=== PATIENT | female | born 1975 | race Caucasian/White ===

== ENCOUNTER 2020-07-25 12:25 | Outpatient (REF) | payer OTHER, SELFPAY ==
--- NOTE | 2020-07-25 12:32 | MM_ITS ---
EXAMINATION: MM DIAGNOSTIC DIGITAL BREAST TOMOSYNTHESIS, BILATERAL CLINICAL INFORMATION: Probable benign calcifications mid outer right breast initially noted at baseline exam. Due for yearly. The lifetime risk of breast cancer based on the Tyrer-Cuzick Model is 7%. COMPARISON: Mammography: 07/17/2019, 11/28/2018, 05/27/2018, 04/22/2018 (BI-RADS 0, baseline). TECHNIQUE: Digital breast tomosynthesis is performed in both the craniocaudal and mediolateral oblique views along with computer-aided detection (CAD). Synthesized 2D images are generated from the tomosynthesis. FINDINGS: The breasts are heterogeneously dense, which may obscure small masses (ACR BI-RADS breast composition Category c). There is no developing density or interval mass or architectural abnormality. There are scattered punctate round calcifications in each breast. The calcifications for follow-up mid 9:30 o'clock right breast are similar to prior diagnostic studies and now considered to be benign. Results are provided to the patient at time of visit by the technologist. MM/MM tomosynthesis diagnostic BI IMPRESSION: 1. No mammographic evidence of malignancy. 2. Right breast calcifications stable from prior diagnostic studies, now considered benign. ASSESSMENT: BI-RADS 2: Benign RECOMMENDATION: Routine annual mammography screening. This patient's information was entered into a reminder system with a target due date for their next mammogram.
== END 2020-07-25 12:26 | disposition home or self-care (01) ==
LOC: HO.MAMMO 12:25
PROVIDERS: PCP Nurse Practitioner Gerontology; Visit Provider Advanced Practice Midwife
DX: R92.1 Mammographic calcification found on diagnostic imaging of breast (principal)
CPT/HCPCS: 77062; 77066

== ENCOUNTER 2020-08-05 06:55 | Outpatient (REF) | payer OTHER, SELFPAY | END 2020-08-05 06:56 | disposition home or self-care (01) | LOC: HO.LAB 06:55 | PROVIDERS: Visit Provider Internal Medicine | DX: Z20.828 Contact with and (suspected) exposure to other viral communicable diseases (principal) | CPT/HCPCS: C9803; U0003 ==

== ENCOUNTER 2021-07-18 13:27 | Outpatient (REF) | payer OTHER, SELFPAY ==
--- NOTE | ~2021-07-18 | MM_ITS ---
EXAMINATION: MM SCREENING DIGITAL BREAST TOMOSYNTHESIS, BILATERAL CLINICAL INFORMATION: Screening. Asymptomatic. The lifetime risk of breast cancer based on the Tyrer-Cuzick Model is 6%. COMPARISON: Mammography: 07/25/2020, 07/17/2019, 11/28/2018, 05/27/2018, 04/22/2018 TECHNIQUE: Digital breast tomosynthesis is performed in both the craniocaudal and mediolateral oblique views along with computer-aided detection (CAD). Synthesized 2D images are generated from the tomosynthesis. FINDINGS: The breasts are heterogeneously dense, which may obscure small masses (ACR BI-RADS breast composition Category c). There are no significant masses, abnormal calcifications, or other abnormalities. Summation artifact posterior central left breast on synthesized CC view shows no correlate on tomography. There is no developing density in either breast. Scattered punctate calcifications again seen regional anterior to mid medial left breast and stable calcifications mid upper outer right breast. The axilla and skin contours are unremarkable. MM/MM tomosynthesis screening BI IMPRESSION: No mammographic evidence of malignancy. ASSESSMENT: BI-RADS 2: Benign RECOMMENDATION: Routine annual mammography screening. This patient's information was entered into a reminder system with a target due date for their next mammogram.
== END 2021-07-18 13:28 | disposition home or self-care (01) ==
LOC: HO.MAMMO 13:27
PROVIDERS: Visit Provider Advanced Practice Midwife
DX: Z12.31 Encounter for screening mammogram for malignant neoplasm of breast (principal)
CPT/HCPCS: 77063; 77067

== ENCOUNTER 2021-07-23 08:26 | Outpatient (REF) | payer OTHER, SELFPAY ==
[2021-07-26 02:47] LABS: HPV mRNA E6/E7 rflx Not Detected (Not Detected)
== END 2021-07-23 08:27 | disposition home or self-care (01) ==
LOC: HO.LAB 08:26
PROVIDERS: PCP Internal Medicine; Visit Provider Obstetrics & Gynecology
DX: Z01.411 Encounter for gynecological examination (general) (routine) with abnormal findings (principal); Z11.51 Encounter for screening for human papillomavirus (HPV); N85.2 Hypertrophy of uterus
CPT/HCPCS: 87624; 88142

== ENCOUNTER 2021-07-23 13:26 | Outpatient (REF) | payer OTHER, SELFPAY ==
--- NOTE | ~2021-07-23 | US_ITS ---
EXAMINATION: US PELVIS COMPLETE CLINICAL INFORMATION: Uterine hypertrophy. COMPARISON: None TECHNIQUE: Ultrasound of the pelvis is performed using both transabdominal and transvaginal transducers along with Doppler. Transvaginal imaging is performed due to inadequate visualization transabdominally. FINDINGS: Uterus: The uterus is anteverted and anteflexed measuring 11.0 x 6.0 x 6.2 cm. There is a right fundal fibroid measuring 5.1 x 4.9 x 5.9 cm. The double wall endometrial thickness is 11 mm. Other than the fibroid, the uterus is smooth in contour and has normal myometrial echogenicity. A complex nabothian cyst measuring 1.0 x 0.6 x 0.8 cm is seen in the cervix. Adnexa: Both ovaries are visualized. There is normal color-flow to the adnexa. There is no ovarian torsion. There is no pelvic ascites or fluid collection. Right ovary measures 4.1 x 1.9 x 2.0 cm for a volume of 8.2 mL and contains a 1.4 x 1.3 x 1.0 cm probable corpus luteum cyst. Left ovary measures 2.8 x 1.2 x 2.0 cm for a volume of 3.5 mL and appears unremarkable. US/US pelvic complete IMPRESSION: 5.9 cm right fundal uterine fibroid.
== END 2021-07-23 13:27 | disposition home or self-care (01) ==
LOC: HO.US 13:26
PROVIDERS: PCP Internal Medicine; Visit Provider Obstetrics & Gynecology
DX: N85.2 Hypertrophy of uterus (principal)
CPT/HCPCS: 76856

== ENCOUNTER → 2021-10-28 12:07 | Outpatient (BNVA) | payer OTHER, SELFPAY | PROVIDERS: PCP Internal Medicine; Visit Provider Obstetrics & Gynecology ==

== ENCOUNTER 2022-03-16 10:54 | Outpatient (REF) | payer OTHER, SELFPAY ==
--- NOTE | ~2022-03-16 | US_ITS ---
EXAMINATION: US PELVIS CLINICAL INFORMATION: Benign neoplasm of connective and other soft tissue. COMPARISON: Previous ultrasound 07/23/2021. TECHNIQUE: Ultrasound of the pelvis is performed using both transabdominal and transvaginal transducers along with Doppler. Transvaginal imaging is performed due to inadequate visualization transabdominally. FINDINGS: UTERUS: The uterus is anteverted, anteflexed and measures 11.2 cm in length, 6.2 cm in AP and 6.0 cm in transverse dimension. The double wall endometrial thickness is 0.6 cm. The uterus is smooth in contour and has normal myometrial echogenicity. There are 2 hypoechoic lesions. The larger lesion in the right fundus measures 6.1 x 5.7 x 6.0 cm. Previously it measured 5.1 x 4.9 x 5.9 cm. A smaller hyperechoic lesion in the right body of the uterus measures 0.8 x 0.5 x 0.7 cm and is new. There is a complex nabothian cyst measuring 0.8 x 0.5 x 0.8 cm. ADNEXA: Both ovaries are visualized. There is normal color flow to the adnexa. There is no ovarian torsion. There is no pelvic ascites or fluid collection. RIGHT OVARY: Measures 2.8 x 1.7 x 2.1 cm and volume 5.2 mL. It is visualized transabdominally. No focal lesion seen. Previously it measured 4.1 x 1.9 x 2.0 cm. LEFT OVARY: Measures 2.4 x 1.2 x 1.9 cm and volume 2.9 mL. No focal lesion seen. Previously left ovary measured 2.8 x 1.2 x 2.0 cm. US/US pelvic and transvaginal IMPRESSION: Two uterine fibroids. The smaller one is new. Complex nabothian cysts. The ovaries are unremarkable.
== END 2022-03-16 10:55 | disposition home or self-care (01) ==
LOC: HO.US 10:54
PROVIDERS: Visit Provider Obstetrics & Gynecology
DX: D21.9 Benign neoplasm of connective and other soft tissue, unspecified (principal)
CPT/HCPCS: 76830; 76856

== ENCOUNTER → 2022-03-30 10:25 | Outpatient (BNVA) | payer OTHER, SELFPAY | PROVIDERS: PCP Internal Medicine; Visit Provider Obstetrics & Gynecology | DX: D25.9 Leiomyoma of uterus, unspecified (principal) | CPT/HCPCS: 99212 ==

== ENCOUNTER 2022-09-08 11:39 | Outpatient (REF) | payer OTHER, SELFPAY ==
[2022-09-08 12:11] LABS: COVID-19 Test Negative (Negative); IDNOW Serial# 55D5AD1C
== END 2022-09-08 11:40 | disposition home or self-care (01) ==
LOC: HO.LAB 11:39
PROVIDERS: Visit Provider Internal Medicine
DX: Z20.822 Contact with and (suspected) exposure to COVID-19 (principal)
CPT/HCPCS: 87635; C9803

== ENCOUNTER 2022-09-30 09:12 | Outpatient (REF) | payer OTHER, SELFPAY ==
[2022-10-02 17:58] LABS: HPV mRNA E6/E7 rflx Not Detected (Not Detected)
== END 2022-09-30 09:13 | disposition home or self-care (01) ==
LOC: HO.LNP 09:12
PROVIDERS: PCP Internal Medicine; Visit Provider Obstetrics & Gynecology
DX: Z01.419 Encounter for gynecological examination (general) (routine) without abnormal findings (principal); Z11.51 Encounter for screening for human papillomavirus (HPV)
CPT/HCPCS: 87624; 88142

== ENCOUNTER 2022-09-30 10:10 | Outpatient (REF) | payer OTHER, SELFPAY ==
[2022-09-30 11:24] LABS: Syphilis Screen Nonreactive (Nonreactive)
[2022-09-30 11:25] LABS: HIV AB/AG Nonreactive (Nonreactive); HIV Num 1 0.06 S/CO (0.00-0.99); Hepatitis B Surface Antigen Negative (Negative); ~Hepatitis C Antibody Nonreactive (Nonreactive)
[2022-09-30 13:39] LABS: CT PCR NOT DETECTED (Not Detect.); NG PCR NOT DETECTED (Not Detect.)
[2022-10-01 09:00] LABS: BV Int Neg Control Negative (Negative); BV Int Pos Control Positive (Positive)
== END 2022-09-30 10:11 | disposition home or self-care (01) ==
LOC: HO.LAB 10:10
PROVIDERS: PCP Internal Medicine; Visit Provider Obstetrics & Gynecology
DX: Z01.419 Encounter for gynecological examination (general) (routine) without abnormal findings (principal); Z11.3 Encounter for screening for infections with a predominantly sexual mode of transmission; Z11.4 Encounter for screening for human immunodeficiency virus [HIV]
CPT/HCPCS: 0353U; 86780; 86803; 87340; 87389; 87480; 87510; 87660

== ENCOUNTER 2022-10-16 11:03 | Outpatient (REF) | payer OTHER, SELFPAY ==
--- NOTE | ~2022-10-16 | MM_ITS ---
EXAMINATION: MM SCREENING DIGITAL BREAST TOMOSYNTHESIS, BILATERAL CLINICAL INFORMATION: Screening. Asymptomatic. The lifetime risk of breast cancer based on the Tyrer-Cuzick Model is 7%. COMPARISON: Mammography: 07/18/2021, 07/25/2020, 07/17/2019, 04/22/2018 TECHNIQUE: Digital breast tomosynthesis is performed in both the craniocaudal and mediolateral oblique views along with computer-aided detection (CAD). Synthesized 2D images are generated from the tomosynthesis. FINDINGS: The breasts are heterogeneously dense, which may obscure small masses (ACR BI-RADS breast composition Category c). Left CC view has subtle small asymmetric density mid outer breast, 4 cm from nipple. Finding is likely related to summation artifact or incompletely compressed glandular tissue. Patient will be recalled for additional imaging. The remainder of the breasts show no significant changes from prior studies. No developing density or architectural abnormality. Again, there are scattered bilateral punctate calcifications similar to prior study. The skin contours are smooth. MM/MM tomosynthesis screening BI IMPRESSION: Left: -Subtle asymmetric density mid outer breast on CC view, likely summation artifact or incompletely compressed glandular tissue. Right: -No mammographic evidence of malignancy. ASSESSMENT: BI-RADS 0: Incomplete - Need Additional Imaging Evaluation RECOMMENDATION: 1. Additional views of the left breast (spot CC). 2. Targeted ultrasound if warranted after review of the additional views. 3. Radiology department staff will contact the patient for additional imaging. This patient's information was entered into a reminder system with a target due date for their next mammogram.
== END 2022-10-16 11:04 | disposition home or self-care (01) ==
LOC: HO.MAMMO 11:03
PROVIDERS: Visit Provider Obstetrics & Gynecology
DX: Z12.31 Encounter for screening mammogram for malignant neoplasm of breast (principal)
CPT/HCPCS: 77063; 77067

== ENCOUNTER 2022-10-28 09:18 | Outpatient (REF) | payer OTHER, SELFPAY ==
--- NOTE | ~2022-10-28 | MM_ITS ---
EXAMINATION: MM DIAGNOSTIC DIGITAL BREAST TOMOSYNTHESIS, LEFT CLINICAL INFORMATION: Left breast density laterally COMPARISON: Mammography: October 16, 2022 and studies dating back to April 22, 2018 TECHNIQUE: Digital breast tomosynthesis is performed. 2D images are generated from the tomosynthesis. The following views are obtained: Spot compression left breast craniocaudal view. FINDINGS: The breasts are heterogeneously dense, which may obscure small masses (ACR BI-RADS breast composition Category c). Additional views show no significant mass, architectural abnormality, or abnormal calcifications. Results are provided to the patient at time of visit by the technologist. MM/MM tomosynthesis added views L IMPRESSION: No persistent abnormality appreciated. ASSESSMENT: BI-RADS 1: Negative RECOMMENDATION: Routine annual mammography screening due in 12 months. This patient's information was entered into a reminder system with a target due date for their next mammogram.
== END 2022-10-28 09:19 | disposition home or self-care (01) ==
LOC: HO.MAMMO 09:18
PROVIDERS: PCP Internal Medicine; Visit Provider Obstetrics & Gynecology
DX: R92.2 Inconclusive mammogram (principal)
CPT/HCPCS: 77061; 77065

== ENCOUNTER 2022-11-06 10:49 | Outpatient (REF) | payer OTHER, SELFPAY ==
--- NOTE | ~2022-11-06 | US_ITS ---
EXAMINATION: US PELVIS COMPLETE CLINICAL INFORMATION: Benign neoplasm of connective and other soft tissue; the last menstrual period is uncertain. COMPARISON: Pelvic ultrasound dated 03/16/2022. TECHNIQUE: Transabdominal and transvaginal imaging were performed. FINDINGS: The uterus is of normal size and echogenicity, measuring 9.4 x 4.8 x 5.7 cm. The uterus is anteverted and anteflexed. A regular, homogeneous endometrium is identified measuring 0.6 cm. A 6 x 3 x 5 mm right hyperechoic endometrial polyp is noted. A 1.3 x 0.6 x 0.8 cm complex nabothian cysts seen within the cervix. FIBROIDS: There are 2 fibroids seen. 1. Location: Rightward fundus, myometrial. Size: 6.3 x 6.3 x 7.4 cm. Prior: 6.1 x 5.7 x 5.9 cm. Fibroid characteristics: Heterogeneous echotexture. 2. Location: Posterior rightward body, subendometrial. Size: 7 x 5 x 7 mm. Prior: 8 x 5 x 7 mm. Fibroid characteristics: Hypoechoic. Both ovaries are of normal size and echogenicity. The right ovary measures 3.1 x 1.3 x 1.7 cm, for a volume of 3.6 mL. The left ovary measures 2.4 x 2.7 x 1.9 cm, for a volume of 6.5 mL. The left ovary contains a 1.3 x 1.3 x 1.0 cm benign, simple cyst. There is no pelvic free fluid. No adnexal mass is seen. US/US pelvic and transvaginal IMPRESSION: 1. Uterine fibroids are redemonstrated, as detailed. 2. A 6 mm in maximal diameter endometrial polyp is noted. This could represent a hyperplastic polyp, focal endometrial hyperplasia, a subendometrial fibroid or other neoplasm. Gynecology evaluation and management is recommended, with consideration for tissue sampling. 3. A complex nabothian cyst is seen within the cervix. 4. A 1.3 cm benign, simple left ovarian cyst is seen, for which no imaging follow-up is recommended.
== END 2022-11-06 10:50 | disposition home or self-care (01) ==
LOC: HO.US 10:49
PROVIDERS: PCP Internal Medicine; Visit Provider Obstetrics & Gynecology
DX: D21.9 Benign neoplasm of connective and other soft tissue, unspecified (principal)
CPT/HCPCS: 76830; 76856

== ENCOUNTER → 2022-11-24 09:50 | Outpatient (BNVA) | payer OTHER, SELFPAY | PROVIDERS: PCP Internal Medicine; Visit Provider Obstetrics & Gynecology | DX: N84.0 Polyp of corpus uteri (principal); D21.9 Benign neoplasm of connective and other soft tissue, unspecified | CPT/HCPCS: 99212 ==

== ENCOUNTER → 2023-01-05 08:10 | Outpatient (BNVA) | payer MEDICAID, SELFPAY | PROVIDERS: Visit Provider Obstetrics & Gynecology | DX: N84.0 Polyp of corpus uteri (principal) | CPT/HCPCS: 99212 ==

== ENCOUNTER 2023-01-08 08:14 | Day surgery (SDC) | payer MEDICAID, SELFPAY ==
--- NOTE | 2023-01-07 12:10 | HO.ANESPROP2 ---
Documented by User: Gabbi Palacios NP 01/07/23 12:11 HPI - Anesthesia Eval Consult details Narrative: 47yo F for D&C Hysteroscopy,poss myomectomy,poss polypectomy PMFSH Active Problems Active Problems: All Active Problems (Updated 11/24/22 @ 10:26 by Robb Sanchez MD) Endometrial polyp (Acute) Screening mammogram for breast cancer (Acute) Screen for STD (sexually transmitted disease) (Acute) Myoma (Acute) Enlarged uterus (Acute) Well woman exam (Acute) Past Medical History Medical History ASCUS with positive high risk HPV cervical Surgical History Surgical History (Updated 01/08/23 @ 09:35 by Carmen Christie MD) H/O tubal ligation Social History Social History Patient Tobacco Use Status: Never used Tobacco Use of substances other than those prescribed or required for medical reasons: No Are you DNR?: No Advance Directives: No Advance Directives Information Provided: Yes Meds Allergies Allergy/AdvReac Type Severity Reaction Status Date / Time No Known Allergies Allergy Verified 01/08/23 09:00 [No Known Allergies*] Home Medications Medication Instructions Recorded Confirmed Last Taken Type No Known Home Meds 01/05/23 01/05/23 Unknown History Exam Exam Date and Time: January 07, 2023 121 Assessment and Plan Assessment Anesthesia Assessment: Chart Reviewed Documented by User: Carmen Christie MD 01/08/23 09:36 PMFSH Active Problems Active Problems: All Active Problems (Updated 01/08/23 @ 09:26 by Carmen Christie MD) Endometrial polyp (Acute) Screening mammogram for breast cancer (Acute) Screen for STD (sexually transmitted disease) (Acute) Myoma (Acute) Enlarged uterus (Acute) Well woman exam (Acute) Past Medical History Medical History ASCUS with positive high risk HPV cervical Family History Family history of problems with anesthesia: No Surgical History Surgical History (Updated 01/08/23 @ 09:35 by Carmen Christie MD) H/O tubal ligation History of Problems with Anesthesia: No Social History Social History Patient Tobacco Use Status: Never used Tobacco Use of substances other than those prescribed or required for medical reasons: No Are you DNR?: No Advance Directives: No Advance Directives Information Provided: Yes Meds Allergies Allergy/AdvReac Type Severity Reaction Status Date / Time No Known Allergies Allergy Verified 01/08/23 09:00 [No Known Allergies*] Home Medications Medication Instructions Recorded Confirmed Last Taken Type No Known Home Meds 01/05/23 01/05/23 Unknown History Exam Height,Weight and Vital Signs: Height 5 ft 5 in Weight 57.606 kg Vital Signs Temp Pulse Resp BP Pulse Ox O2 Del Method 01/08/23 09:11 97.4 F 73 15 130/90 H 99 Room Air Pertinent Lab Results Pertinent Lab Results: Lab Results 01/08/23 Range/Units 09:00 Urine Test NEGATIVE (NEGATIVE) Airway Mallampati Class: II TM Dist: >3cm Neck ROM: Full Loose/Missing/Broken Teeth: No (Denies broken, loose, missing teeth) Heart: RRR Lungs: CTAB Assessment and Plan Assessment Anesthesia Assessment: Anesthesia Plan Discussed Final Anesthetic Review Family History of Problems with Anesthesia: No History of Problems with Anesthesia: No NPO: Yes ASA Class: I Final Preanesthetic Review: No Changes in Pt Med Stat, Meds/Allgs Chart Reviewed, Consent Obtained/Reviewed and Anes Risks/Benef Reviewed Patient Risk: Low Procedure Risk: Low Assessment/Block/Sedation in SS: Assess/Block/Sedation-SS Anesthetic Plan Anesthetic Plan: GA Disposition: Standard PACU
[2023-01-08 09:00] VITALS: BMI 21.1
[2023-01-08 09:11] VITALS: BP 130/90; PULSE 73; RESP 15; TEMP 36.3; O2SAT 99
[2023-01-08 09:12] LABS: UPreg QC Valid YES; Urine Pregnancy NEGATIVE (NEGATIVE)
[2023-01-08] MEDS: Lactated Ringers 1,000 ML 100 ML IVCONT (09:23)
--- NOTE | 2023-01-08 10:30 | MHC.SHP ---
Pre-Procedural Eval Section A Date of Service: 01/08/23 The patient is an INPATIENT: No Changes since office visit: No Cold of Flu in the past 2 weeks, No New Medical Problems, No Changes in Medication and No Patient answered all questions The History & Physical has been completed within 30 days and I have reviewed it.: Yes Section B Chief Complaint: Polyp of corpus uteri Allergies: Allergies Allergy/AdvReac Type Severity Reaction Status Date / Time No Known Allergies Allergy Verified 01/08/23 09:00 [No Known Allergies*] Plan Diagnosis/Plan: Unchanged I have reviewed the history and physical and performed a pertinent physical examination on my patient. No changes have occurred unless specified. Time Spent With Patient Time: Total time managing care of this patient today ____ minutes.
--- NOTE | 2023-01-08 11:22 | PM.OP ---
Brief Operative Note Date of Service: 01/08/23 Pre-op diagnosis: Endometrial polyp by ultrasound Post-op diagnosis: same Procedure: Hysteroscopy D&C, Polypectomy Surgeon: Robb Sanchez MD Anesthesia: GLMA Was an Tray Casting Machine Operator used for this Procedure?: No Estimated blood loss (mL): 0 Pathology: other (Endometrial Scrapping. Polyp) Condition: stable Disposition: PACU
--- NOTE | 2023-01-08 11:23 | W.PM.OPN ---
Operative Note Operative Note Date of Service: 01/08/23 Narrative: Preop Diagnosis: Endometrial polyp by US Operation: Diagnostic Hysteroscopy, Dilataion & Curettage and polypectomy Post Op Diagnosis: Endometrial Polyp QBL: Minimal Anesthesia: GLMA Surgeon: Robb Sanchez MD Visiting Housekeeper: None Complication: None Pathology: Endometrial Scrapings, Endometrial polyp Procedure: The patient was put in the dorsal lithotomy position, scrubbed, and draped in the usual manner. A sterile speculum was inserted in the patient's vagina. The anterior lip of the cervix was grasped with a single tooth tenaculum. The cervix was dilated up to 5 mm, then the scope was inserted in the patient's uterus. Inspection revealed endometrial polyp. The Myosure Reach device was used; it was introduced through the operative channel and polypectomy done with no complications. The scope was then taken out from the uterine cavity, sharp curettings was carried on with minimal to moderate amount of tissues retrieved. At the end of the procedure, all instruments were taken out of the patient uterine and vaginal cavity. The single tooth tenaculum was removed and homeostasis was assured using pressure,. The patient tolerated the procedure well and was transferred to the PACU in a stable condition.
[2023-01-08 11:36] VITALS: BP 138/89; PULSE 83; RESP 16; TEMP 36.1; O2SAT 100
[2023-01-08 11:41] VITALS: BP 140/90; PULSE 70; RESP 16; O2SAT 100
[2023-01-08 11:46] VITALS: BP 132/85; PULSE 72; RESP 16; O2SAT 100
[2023-01-08 11:51] VITALS: BP 136/82; PULSE 75; RESP 16; O2SAT 100
[2023-01-08 12:07] VITALS: BP 130/82; PULSE 67; RESP 16; TEMP 36.1; O2SAT 100
== END 2023-01-08 12:45 | disposition home or self-care (01) ==
PROVIDERS: PCP Internal Medicine; Visit Provider Obstetrics & Gynecology
PROC: 0UDB8ZZ Extraction of Endometrium, Via Natural or Artificial Opening Endoscopic (ICD-10-PCS; CPT 58558; principal; 2023-01-08 12:10)
DX: N84.0 Polyp of corpus uteri (principal); Z87.42 Personal history of other diseases of the female genital tract; Z98.51 Tubal ligation status
CPT/HCPCS: 58558; 81025; 88305; J1100; J1885; J2250; J2405

== ENCOUNTER → 2023-01-19 12:13 | Outpatient (BNVA) | payer MEDICAID, SELFPAY | PROVIDERS: PCP Internal Medicine; Visit Provider Obstetrics & Gynecology | DX: N84.0 Polyp of corpus uteri (principal) | CPT/HCPCS: 99212 ==

== ENCOUNTER 2023-11-06 09:50 | Outpatient (REF) | payer MEDICAID, SELFPAY ==
--- NOTE | ~2023-11-06 | MM_ITS ---
EXAMINATION: MM SCREENING DIGITAL BREAST TOMOSYNTHESIS, BILATERAL CLINICAL INFORMATION: Screening. Asymptomatic. COMPARISON: Mammography: This study is compared with prior exams dating back to 2019. TECHNIQUE: Digital breast tomosynthesis is performed in both the craniocaudal and mediolateral oblique views along with computer-aided detection (CAD). Synthesized 2D images are generated from the tomosynthesis. FINDINGS: The breasts are heterogeneously dense, which may obscure small masses (ACR BI-RADS breast composition Category c). There are no significant masses, abnormal calcifications, or other abnormalities. There are scattered, unchanged, benign ossifications in each breast. MM/MM tomosynthesis screening BI IMPRESSION: No mammographic evidence of malignancy. ASSESSMENT: BI-RADS BI-RADS 2 - Benign Findings RECOMMENDATION: Routine annual mammography screening. 1 year F/U This examination should not preclude the clinical evaluation of a suspicious palpable abnormality. This patient's information was entered into a reminder system with a target due date for their next mammogram.
== END 2023-11-06 09:51 | disposition home or self-care (01) ==
LOC: HO.MAMMO 09:50
PROVIDERS: PCP Internal Medicine; Visit Provider Internal Medicine
DX: Z12.31 Encounter for screening mammogram for malignant neoplasm of breast (principal)
CPT/HCPCS: 77063; 77067

== ENCOUNTER → 2023-11-06 10:00 | Outpatient (BNV) | payer MEDICAID, SELFPAY | PROVIDERS: PCP Internal Medicine; Visit Provider Radiology Diagnostic Radiology | DX: Z12.31 Encounter for screening mammogram for malignant neoplasm of breast (principal) | CPT/HCPCS: 77063; 77067 ==

== ENCOUNTER 2024-10-10 14:53 | Outpatient (REF) | payer OTHER, SELFPAY ==
[2024-10-11 02:10] LABS: CT PCR NOT DETECTED (Not Detect.); NG PCR NOT DETECTED (Not Detect.)
[2024-10-11 09:12] LABS: Bacterial Vaginosis PCR NEGATIVE (Negative); Candida Group PCR NOT DETECTED (Not Detect); Candida glab krusei PCR NOT DETECTED (Not Detect); Trichomonas vaginalis PCR NOT DETECTED (Not Detect)
== END 2024-10-10 14:54 | disposition home or self-care (01) ==
LOC: HO.LAB 14:53
PROVIDERS: PCP Internal Medicine; Visit Provider Advanced Practice Midwife
DX: Z01.419 Encounter for gynecological examination (general) (routine) without abnormal findings (principal); N89.8 Other specified noninflammatory disorders of vagina; Z20.2 Contact with and (suspected) exposure to infections with a predominantly sexual mode of transmission; N85.2 Hypertrophy of uterus; D21.9 Benign neoplasm of connective and other soft tissue, unspecified; R10.32 Left lower quadrant pain; G89.29 Other chronic pain
CPT/HCPCS: 81515; 87491; 87591; 99396; 99459

== ENCOUNTER 2024-10-10 14:53 | Outpatient (AMB) | payer OTHER, SELFPAY ==
--- NOTE | 2024-10-10 15:11 | A.OFFVIS_ITS ---
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 she says she does not do exercise.. She has a tubal ligation that she uses for control was done 27 years ago in [place]. She knows that she has fibroids. She says Dr. Sanchez ordered an ultrasound for her last year but she could not get it done because her plan did not cover it but she has a different plan now.. She is up-to-date on her mammograms. She has an appointment with her primary care provider in December at [facility]. She has a history of abnormal Pap smears but her last 2 Pap smears were negative. [facility] Medical History ASCUS with positive high risk HPV cervical Surgical History H/O tubal ligation Social History Patient Tobacco Use Status: Never used Tobacco Female Reproductive History Menstrual Age of Menarche: 12 Duration of menses: 3-5 days Date of last menstrual period: 09/21/24 control method: permanent sterilization Total pregnancies: 3 Full term: 3 Date of last pap smear: 09/28/22 (neg.pap,HPV-.2020,neg) History of abnormal pap smear: Yes (2018,ASCUS) Physical Exam Vital Signs: Last Vital Signs BP 118/70 10/10/24 15:12 BMI result Body Mass Index 24.1 Const General: healthy appearing, comfortable, no acute distress, well developed and alert Nutritional Appearance: average body habitus Orientation/consciousness: patient oriented x3 Limitations: no limitations HEENT Head: Yes normocephalic Neck Neck: Yes normal visual inspection Chest Chest palpation & inspection: normal inspection of the chest Breast/axilla inspection: normal inspection of the breasts and normal inspection of the axillae Breast/axilla palpation: normal palpation of the breasts and normal palpation of the axillae Resp Effort & Inspection: normal respiratory effort GI Inspection: Yes normal to inspection, No Abdominal wall edema and No distended Palpation (GI): Soft to palpation and nontender Other: Patient planning of pain in left groin area. No bulge palpable that would be consistent with a hernia no lymphadenopathy palpable. 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 Adnexa nontender not connected to area where patient has pain. Normal appearing vaginal discharge consistent with luteal phase. Suspect groin strain/musculoskeletal in origin. General: Yes bladder normal to palpation External Female Exam: normal external appearance and normal appearance of the urethra Speculum Exam - Vagina: normal appearance of the vagina, normal palpation and normal vaginal discharge Speculum Exam - Cervix: normal appearance of the cervix, normal palpation and nontender Bimanual exam- vagina & uterus: normal bimanual exam, normal palpation, uterine size normal, bladder normal to palpation, consistency normal, normal palpation, uterine mobility normal, uterine shape normal, No Cervical tenderness present, non-tender and no cervical motion tenderness Bimanual Exam- Adnexa, other: normal adnexae, no masses, normal and No adnexal tenderness Neuro General: patient oriented x3 Results Reviewed Results Reviewed: Name: Mónica Rowland Age/Sex: 47/F Attending: Robb Sanchez MD : 1975 Submitted by: Robb Sanchez MD Copies to: Mikaela Mcgraw MD MR #: [id number] Status: DEP REF Collected: 09/30/22 Location: [facility] Received: 09/30/22 Interpretation Satisfactory for evaluation. Negative for intraepithelial lesion or malignancy. HPV mRNA E6/E7: NOT DETECTED This assay detects E6/E7 viral messenger RNA (mRNA) from 14 high-risk HPV types (16, 18, 31, 33, 35, 39, 45, 51, 52, 56, 58, 59, 66, 68) HPV testing performed by [facility] [facility], [place], [place]. See reference laboratory portion of the EMR for entire report. Clinical Information LMP: 08/29/2022 Previous PAP test: 2020, Abnormal Other history: HPV+ Material Received ThinPrep-Cervical Copies To Mikaela Mcgraw MD [address] [place] [address] [address] [place] [address] Robb Sanchez MD [address] [place] [address] Dr[address] [place] [address] Electronically Signed By: Cindy Navarro 10/09/221828 The Pap Test is a screening procedure with the inherent possibility of both false negative and false positive results. Results should be interpreted in the context of historic and current clinical findings. Reliability of the Pap Test is enhanced by performing the test on a regular repetitive basis. Patient: Mónica Rowland Age/Sex: 47/F MR#: [id number] Page 1 of 1 Name: Mónica Rowland Age/Sex: 46/F Attending: Robb Sanchez MD : 1975 Submitted by: Robb Sanchez MD Copies to: Mikaela Mcgraw MD MR #: [id number] Status: DEP REF Collected: 07/23/21 Location: [facility] Received: 07/24/21 Interpretation Satisfactory for evaluation. Mild inflammation. Negative for intraepithelial lesion or malignancy. HPV mRNA E6/E7: NOT DETECTED This assay detects E6/E7 viral messenger RNA (mRNA) from 14 high-risk HPV types (16, 18, 31, 33, 35, 39, 45, 51, 52, 56, 58, 59, 66, 68) HPV testing performed by [facility], [place], [place]. See reference laboratory portion of the EMR for entire report. Clinical Information LMP: 06/2021 Previous PAP test: 2018, LGSIL Material Received ThinPrep- Cervical Copies To Mikaela Mcgraw MD [address] [place] [address] Robb Sanchez MD [address] [place] [address] Dr[address] [place] [address] Electronically Signed By: OMKAR Mendoza (ASCP) 08/06/21 1434 The Pap Test is a screening procedure with the inherent possibility of both false negative and false positive results. Results should be interpreted in the context of historic and current clinical findings. Reliability of the Pap Test is enhanced by performing the test on a regular repetitive basis. Patient: Mónica Rowland Age/Sex: 46/F MR#: [id number] Page 1 of 1 Assessment & Plan Assessment & Plan (1) Well woman exam: Comment: History of ARCADIO 1 in 2018 Code(s): Z01.419 - Encounter for gynecological examination (general) (routine) without abnormal findings Category: Medical (2) Screen for STD (sexually transmitted disease): Code(s): Z11.3 - Encounter for screening for infections with a predominantly sexual mode of transmission Category: Medical (3) Enlarged uterus: Code(s): N85.2 - Hypertrophy of uterus Category: Medical (4) Myoma: Code(s): D21.9 - Benign neoplasm of connective and other soft tissue, unspecified Category: Medical (5) Groin pain, chronic, left: Comment: For the last 3 months -no evidence of hernia palpated suspect groin strain.... Code(s): R10.32 - Left lower quadrant pain; G89.29 - Other chronic pain Category: Medical Plan -----Discussed in this visit the following: healthy balanced diet, regular and consistent exercise, getting recommended health screens, doing the best she can for her particular health concerns, kegel exercises, pap smear screening and followup recommendations, mammography screening and SBE, normal changes in cycles in her life stage--- . She is up-to-date on her mammograms. She has an appointment with her primary care provider in December. I recommend to her that she talk about the groin pain she is having I do not feel any evidence of lymphadenopathy nor a hernia. It is disconnected physically from her uterus which is in fact enlarged and it is not related to her adnexa either. She was nontender on the pelvic exam completely I am ordering a pelvic ultrasound to assess her fibroids and we will follow-up after that that. She was not due for Pap smear as her last 2 were completely negative. For her leg cramps that she gets at night I recommend drinking more water though she does think she drinks plenty and I recommend [id number] magnesium to help with the leg cramps she can also talk about this with her primary as well. We will have a visit after the ultrasound and follow-up accordingly.. I told her that I think that the groin pain she is having is a musculoskeletal strain of some origin and certainly if it gets worse to seek care sooner than her December appointment but otherwise follow-up with her primary this maybe something that perhaps resolves with rest and avoiding re-injuring it. physical therapy could also be considered. pelvic u/s f/u after the u/s Orders: Orders US pelvic and transvaginal Today D21.9 - Benign neoplasm of connective and other soft tissue, unspecified, G89.29 - Other chronic pain, N85.2 - Hypertrophy of uterus, R10.32 - Left lower quadrant pain, Z01.419 - Encounter for gynecological examination (general) (routine) without abnormal findings, Z11.3 - Encounter for screening for infections with a predominantly sexual mode of transmission CT NG by PCR Today N89.8 - Other specified noninflammatory disorders of vagina, Z20.2 - Contact with and (suspected) exposure to infections with a predominantly sexual mode of transmission Bacterial Vaginosis Panel Today N89.8 - Other specified noninflammatory disorders of vagina Coding Level of Care Code Est Pt Prev Care 40-64y(42858) Diagnoses Well woman exam Z01.419 Screen for STD (sexually transmitted disease) Z11.3 Enlarged uterus N85.2 Myoma D21.9 Groin pain, chronic, left R10.32; G89.29 Time Spent (min) 45 Comment Extra time discussing her other health concerns see notes.
[2024-10-10 15:12] VITALS: BP 118/70; BMI 24.1
== END 2024-10-10 16:10 | disposition home or self-care (01) ==
PROVIDERS: PCP Internal Medicine; Visit Provider Advanced Practice Midwife
DX: Z01.419 Encounter for gynecological examination (general) (routine) without abnormal findings (principal); N85.2 Hypertrophy of uterus; D25.9 Leiomyoma of uterus, unspecified
CPT/HCPCS: 99396; 99459

== ENCOUNTER → 2024-10-17 13:24 | Outpatient (BNV) | payer OTHER, SELFPAY | PROVIDERS: PCP Internal Medicine; Visit Provider Radiology Diagnostic Radiology | DX: N85.2 Hypertrophy of uterus (principal) | CPT/HCPCS: 76830; 76856 ==

== ENCOUNTER 2025-01-17 14:43 | Outpatient (AMB) | payer OTHER, SELFPAY ==
--- NOTE | 2025-01-17 14:44 | A.OFFVIS_ITS ---
Intake Visit Reasons: tv ultrasound results Allergies No Known Allergies [No Known Allergies*] Allergy (Verified 10/10/24 15:12) Medication List - Last Reconciled 01/17/25 by Vicky Alvarenga CNM No Known Home Meds HPI HPI tv ultrasound results: Details: This is a tele visit to review ultrasound results which were done to follow-up on a previously ordered ultrasound some before the had never been done. The ultrasound that was ordered the order another provider for follow-up PFSH Medical History (Updated 10/17/24 @ 17:22 by Vicky Alvarenga CNM) ASCUS with positive high risk HPV cervical Surgical History (Updated 10/10/24 @ 15:53 by Vicky Alvarenga CNM) H/O tubal ligation Social History Patient Tobacco Use Status: Never used Tobacco Female Reproductive History Menstrual Age of Menarche: 12 Telehealth Telehealth Telehealth Platform: [employer] Location of provider rendering services: practice address Location of patient: address on file Patient Identification confirmed using: Name, : Yes Telehealth method: video Patient verbally consented to treatment: Yes Patient verbally consented to billing insurance company: Yes Patient informed of any privacy concerns related to visit: Yes Minutes spent on Phone/Video with Pt.: 6 (15 chart review/6 speaking with pt/7 charting=28) Results Reviewed Results Reviewed: Patient: Mónica Rowland MR#: [id number] : 1975 Acct:[id number] Age/Sex: 49 / F ADM Date: 10/17/24 Loc: [facility]. Attending Dr: Vicky Alvarenga CNM Ordering Physician: Vicky Alvarenga CNM Date of Service: 10/17/24 Procedure(s): US pelvic and transvaginal Accession Number(s): [id number] cc: Vicky Alvarenga CNM; Mikaela Mcgraw MD~ EXAMINATION: US PELVIS TRANSABDOMINAL AND TRANSVAGINAL HISTORY: N85.2 - Hypertrophy of uterus COMPARISON: Comparison is made with the prior examination dated 11/06/2022. TECHNIQUE: Transabdominal and endovaginal real-time 2D tyson-scale ultrasound was performed. Color Doppler was also performed. FINDINGS: Uterus: The uterus is normal in size, measuring 8.9 x 5.1 x 5.3 cm. Myometrium has a normal echotexture. Again seen are multiple fibroids including a 6.3 x 5.7 x 5.9 cm right fundal fibroid (previously 6.3 x 6.3 x 7.4 cm), a 0.9 x 1.0 x 0.9 cm anterior fibroid (previously 0.7 x 0.5 x 0.7 cm), and a 1.6 x 1.3 x 1.5 cm left fundal fibroid (not seen previously). Endometrium: The endometrial stripe measures 2 mm in thickness. Right ovary: The right ovary measures 3.4 x 1.3 x 1.9 cm. The right ovary is normal in size and echotexture. Left ovary: The left ovary measures 2.1 x 2.5 x 1.9 cm. The left ovary is normal in size and echotexture. Color Doppler analysis of the bilateral ovarian arteries and veins are normal. Pelvic fluid: none. US/US pelvic and transvaginal IMPRESSION: Fibroid uterus as described. 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 Negative for intraepithelial lesion or malignancy. HPV mRNA E6/E7: NOT DETECTED This assay detects E6/E7 viral messenger RNA (mRNA) from 14 high-risk HPV types (16, 18, 31, 33, 35, 39, 45, 51, 52, 56, 58, 59, 66, 68) HPV testing performed by [employer] [facility], [place], [place]. See reference laboratory portion of the EMR for entire report. Clinical Information LMP: 08/29/2022 Previous PAP test: 2020, Abnormal Other history: HPV+ Material Received ThinPrep-Cervical Copies To Mikaela Mcgraw MD [address] [place] [address] Robb Sanchez MD [address] [place] [address] Dr[address] [place] [address] Electronically Signed By: Cindy Navarro 10/09/22 2287 The Pap Test is a screening procedure with the inherent possibility of both false negative and false positive results. Results should be interpreted in the context of historic and current clinical findings. Reliability of the Pap Test is enhanced by performing the test on a regular repetitive basis. Patient: Mónica Rowland Age/Sex: 47/F MR#: [id number] Page 1 of 1 -------- +reviewed and compared Multiple notes from 2022 by previous provider including operative notes and pathology as well. Assessment & Plan Assessment & Plan (1) Enlarged uterus: Code(s): N85.2 - Hypertrophy of uterus Category: Medical (2) Myoma: Comment: Known large fibroids. Patient was unable to get ultrasound as ordered by [facility] last year now had ultrasound we will review w patient and refer for follow-up Code(s): D21.9 - Benign neoplasm of connective and other soft tissue, unspecified Category: Medical Plan I reviewed her current ultrasound her previous ultrasound what had occurred in previous conversations as well with a previous provider's about myomas and the small risk of tenzin sarcoma, in the miniscule changes in size noted. Reviewed that there is no polyp seen at this time reviewed her last Pap smear. We will see her next year she told me she has a mammogram scheduled for the or 2nd week of February. Note patient had said video was so she was contacted via [place], but then she was driving so video portion was not possible. Safety 1st. RTC for next annual Coding Level of Care Code Tele Est Pt Level 3 (28147) Diagnoses Enlarged uterus N85.2 Myoma D21.9
== END 2025-01-17 17:04 | disposition home or self-care (01) ==
LOC: HO.HWS 14:43
PROVIDERS: PCP Internal Medicine; Visit Provider Advanced Practice Midwife
DX: N85.2 Hypertrophy of uterus (principal); D21.9 Benign neoplasm of connective and other soft tissue, unspecified
CPT/HCPCS: 99213